=== PATIENT | male | born 1955 | race Caucasian/White ===

== ENCOUNTER 2016-08-14 07:40 | Day surgery (SDC) | payer OTHER ==
[2016-08-14] MEDS ORDERED: METOPROLOL TART25 M1 PO (07:58)
[2016-08-14] MEDS ORDERED: ADULT LOW DOSE81 M1 PO (07:58)
[2016-08-14] MEDS ORDERED: LISINOPRIL-HCT1 EAC2 PO (07:58)
[2016-08-14] MEDS ORDERED: NORVASC5 M2 PO (07:59)
[2016-08-14] MEDS ORDERED: POTASSIUM CHLO10 ME3 PO (07:59)
[2016-08-14] MEDS ORDERED: LIPITOR40 M1 PO (08:00)
[2016-08-14 08:27] LABS: URINE BILIRUBIN NEGATIVE (NEG); URINE BLOOD MODERATE (NEG); URINE GLUCOSE (UA) NEGATIVE (NEG); URINE KETONE NEGATIVE (NEG); URINE LEUKOCYTE ESTERASE NEGATIVE (NEG); URINE NITRITE NEGATIVE (NEG); URINE PROTEIN NEGATIVE (NEG)
[2016-08-14 08:34] LABS: URINE APPEARANCE CLEAR; URINE COLOR YELLOW
[2016-08-14 08:41] LABS: BASO % 0.1 % (0-2); EOS % 0.1 % (0-7); HCT-HEMATOCRIT 43.5 % (36.0-53.5); HGB-HEMOGLOBIN 15.6 gm/dl (13.5-17.0); IMMATURE GRANULOCYTES ABSOLUTE 0.03 tho/cmm (0-0.03); IMMATURE GRANULOCYTES PERCENT 0.2 % (0-0.3); LYMPH % 7.5 % (20-45); LYMPH ABSOLUTE COUNT 1.1 tho/cmm (0.8-4.5); MCH (MEAN CORPUSCULAR HGB) 33.5 pg (28.0-32.0); MCHC MEAN CORPUSCULAR HGB CONC 35.9 % (32.0-36.0); MCV (MEAN CELL VOLUME) 93.5 fl (82.0-96.0); MEAN PLATELET VOLUME 10.3 cmc (9.4-12.4); MONO % 6.9 % (0-12); NEUTROPHIL ABSOLUTE COUNT 11.9 tho/cmm (1.6-8.0); NEUTROPHIL-AUTOMATED 11.9 tho/cmm (1.6-8.0); NEUTROPHILS % 85.2 % (40-80); PLATELET COUNT 203 tho/cmm (150-450); RED BLOOD COUNT 4.65 mil/cmm (4.40-5.70); RED CELL DISTRIBUTION WIDTH 13.1 % (12.4-16.4)
[2016-08-14 08:53] LABS: ALB/GLOB RATIO 1.3 (0.8-2.0); ALBUMIN 4.5 g/dl (3.5-5.0); ALKALINE PHOSPHATASE 123 U/L (33-138); ALT/SGPT 49 U/L (12-78); ANION GAP 14 mmol/L (0-20); AST/SGOT 43 U/L (10-40); BILIRUBIN,TOTAL 0.7 mg/dl (0.0-1.5); BLOOD UREA NITROGEN 16 mg/dl (6-24); CALCIUM 8.8 mg/dl (8.5-10.5); CARBON DIOXIDE-VENOUS 24 mmol/L (22-32); CHLORIDE 106 mmol/l (96-110); GLUCOSE 132 mg/dL (70-110); LIPASE 98 U/L (73-393); POTASSIUM 3.4 mmol/L (3.7-5.1); SODIUM 141 mmol/L (135-145); eGFR VALUE FOR BLACK 83 mL/Min
[2016-08-14 09:00] LABS: URINE EPITHELIAL CELLS 0 /[HPF] (0-10); URINE RBC 0-3 /[HPF] (0-5); URINE WBC 0-1 /[HPF] (0-5)
[2016-08-15] MEDS ORDERED: NORCO 5-325 TA1 EACH PO (14:26)
== END 2016-08-15 14:51 ==
LOC: EDMED 07:40 → SRG 10:32 → ORW 14:33 → PACU 15:00 → 5WE 16:30
PROVIDERS: Emergency Medicine
PROC: 0DTJ4ZZ Resection of Appendix, Percutaneous Endoscopic Approach (ICD-10-PCS; principal; 2016-08-14)
DX: K35.2 Acute appendicitis with generalized peritonitis (principal); I10 Essential (primary) hypertension; E78.5 Hyperlipidemia, unspecified; I25.10 Atherosclerotic heart disease of native coronary artery without angina pectoris; F17.210 Nicotine dependence, cigarettes, uncomplicated; Z79.82 Long term (current) use of aspirin; Z79.899 Other long term (current) drug therapy; Z98.890 Other specified postprocedural states
CPT/HCPCS: J1335; J2175; J2270; J2405; J3010; J7030; Q9967